=== PATIENT | female | born 2000 | race Two or more races ===

== ENCOUNTER 2023-05-15 11:28 | Emergency (ER) | payer BC ==
[~2023-05-15] VITALS: Ht 170.2 cm; Wt 153.9 kg
[2023-05-15] MEDS ORDERED: ACETAMINOPHEN 500 MG TAB PO ONE (12:45)
[2023-05-15 13:11] LABS: Urine Bacteria FEW /hpf (None Seen); Urine Blood Negative /uL (Negative); Urine Clarity Clear (Clear); Urine Color Yellow (Yellow); Urine Protein, UAD Negative (Negative); Urine Specific Gravity 1.023 (1.001-1.035); Urine Urobilinogen Normal (Negative); Urine WBC 4 /hpf (0 - 5)
[2023-05-15 14:12] VITALS: BP 149/95; PULSE 111; TEMP 102
[2023-05-15] MEDS ORDERED: DexAMETHasone SOD PHOS 10MG/1ML VIAL INJ IM ONE (15:00)
[2023-05-15] MEDS ORDERED: ALBUTEROL SULF 2.5 MG/0.5ML(0.5%) NEB SOLN NEB ONE (15:00)
[2023-05-15] MEDS ORDERED: IPRATROPIUM BROM 0.5 MG/2.5ML INH SOL NEB ONE (15:00)
[2023-05-15] MEDS ORDERED: ALBU108A5 IN (15:04)
[2023-05-15] MEDS ORDERED: PRED20TA2 PO (15:04)
[2023-05-15] MEDS ORDERED: AZITTAB PO (15:04)
[2023-05-15 15:24] VITALS: RESP 20; O2SAT 95
[2023-05-15] MEDS ORDERED: PROM1SOL4 PO (15:34)
== END 2023-05-15 15:56 | disposition home or self-care (01) ==
LOC: ER 11:28
DX: J20.9 Acute bronchitis, unspecified (principal)
CPT/HCPCS: 71045; 81001; 81025; 94640; 96372; 99284; J1100; J7644